=== PATIENT | female | born 1990 | race Caucasian/White ===

== ENCOUNTER 2023-01-17 22:49 | Emergency (ER) | payer SELFPAY ==
[2023-01-17 22:52] VITALS: BP 123/73; PULSE 82; RESP 16; TEMP 36.9; O2SAT 98
--- NOTE | 2023-01-17 23:06 | ED.GENADULT ---
HPI - General Adult General Chief complaint: Unspecified Stated complaint: jaw pain Time Seen by Provider: 01/17/23 23:00 Source: patient Mode of arrival: ambulatory Limitations: no limitations History of Present Illness HPI narrative: this is a 32-year-old female that presents with some left ear pain was treated with ear drops proximally 4 days ago and has since had additional pain that radiates down into her left jaw area with no fever chills no sore throat no submandibular gland enlargement. Onset (ago): day(s) Severity: moderate Related Data Allergies Allergy/AdvReac Type Severity Reaction Status Date / Time levofloxacin [From Levaquin] Allergy Hives Verified 01/17/23 22:56 Review of Systems Review of Systems: All systems reviewed & are unremarkable except as noted in HPI and below PMFSH Past Medical History Medical History Patient denies medical problems Exam Const: General: cooperative, healthy appearing, comfortable and no acute distress HENMT: Other: left ear erythema and tenderness with radiation into her left jaw area Neck: Neck: normal visual inspection, full ROM and no lymphadenopathy Chest: Chest palpation & inspection: normal inspection of the chest and normal palpation of entire chest wall Resp: Effort & Inspection: normal respiratory effort and able to speak in complete sentences Cardio: Jugular venous distension: no JVD Palpation: normal PMI Rate: regular rate Rhythm: regular rhythm Skin: General skin exam: normal color and no rashes or lesions noted Neuro: General: oriented to person, oriented to place and oriented to time Extrem: General: normal to inspection, full ROM and capillary refill normal Course Course Emergency Course: patient received a dose of p.o. Augmentin and a dose of p.o. Toradol for pain. Vital Signs Vital signs: Vital Signs Temperature 36.9 C 01/17/23 22:52 Pulse Rate 82 01/17/23 22:52 Respiratory Rate 16 01/17/23 22:52 Blood Pressure 123/73 01/17/23 22:52 Pulse Oximetry 98 01/17/23 22:52 Temperature 36.9 C 01/17/23 22:52 Pulse Rate 82 01/17/23 22:52 Respiratory Rate 16 01/17/23 22:52 Blood Pressure 123/73 01/17/23 22:52 Pulse Oximetry 98 01/17/23 22:52 Medical Decision Making Vital Signs Vital Signs: Vital Signs Temperature 36.9 C 01/17/23 22:52 Pulse Rate 82 01/17/23 22:52 Respiratory Rate 16 01/17/23 22:52 Blood Pressure 123/73 01/17/23 22:52 Pulse Oximetry 98 01/17/23 22:52 Temperature 36.9 C 01/17/23 22:52 Pulse Rate 82 01/17/23 22:52 Respiratory Rate 16 01/17/23 22:52 Blood Pressure 123/73 01/17/23 22:52 Pulse Oximetry 98 01/17/23 22:52 Critical Care Time Critical Care Time Critical Care Time: No Discharge Plan Discharge Clinical Impression: Otitis media Patient Disposition: Home, Self-Care Condition: Stable Instructions: Antibiotic Form Additional Instructions: take medicine as prescribed and follow up with primary if symptoms persist or worsen. Prescriptions: New amoxicillin-pot clavulanate [Augmentin] 500-125 mg tablet 1 tablet PO TID Qty: 30 0RF Follow-up/Referrals: UNKNOWN,DOCTOR [Primary Care Provider] - Time of Disposition: 23:12
[2023-01-17] MEDS: KETOROLAC 10 MG TABLET PO (23:13)
[2023-01-17] MEDS: AMOXICILLIN/CLAVULANATE K 875-125 MG TAB 1 TABLET PO (23:14)
[2023-01-17 23:27] VITALS: BP 123/73; PULSE 82; RESP 16; TEMP 36.9; O2SAT 98
== END 2023-01-17 23:29 | disposition home or self-care (01) ==
LOC: CHSED 23:24
PROVIDERS: Emergency Provider Emergency Medicine
DX: H66.92 Otitis media, unspecified, left ear (principal)
CPT/HCPCS: 99283; A9270